=== PATIENT | female | born 1990 | race Caucasian/White ===

== ENCOUNTER 2021-06-21 18:17 | Outpatient (CLI) | payer MEDICAID | END 2021-06-21 18:18 | disposition EMS.NT | LOC: EMS 18:17 | DX: R06.09 Other forms of dyspnea (principal); R07.89 Other chest pain; R05.9 Cough, unspecified ==

== ENCOUNTER 2023-07-15 21:24 | Outpatient (CLI) | payer SELFPAY | END 2023-07-15 21:25 | disposition critical access hospital (66) | LOC: EMS 21:24 | DX: R06.03 Acute respiratory distress (principal); R00.0 Tachycardia, unspecified; J45.909 Unspecified asthma, uncomplicated | CPT/HCPCS: A0425; A0427 ==

== ENCOUNTER 2023-07-15 21:48 | Observation (INO) | payer SELFPAY ==
[2023-07-15 22:06] LABS: BASOPHILS % (AUTO) 0.4 %; EOSINOPHILS % (AUTO) 15.4 %; HCT - HEMATOCRIT 43.7 % (37.0-47.0); HGB - HEMOGLOBIN 13.5 g/dL (12.0-16.0); LYMPHOCYTES % (AUTO) 20.4 %; MEAN CORPUSCULAR HEMOGLOBIN 25.5 pg (27.0-31.0); MEAN CORPUSCULAR HGB CONC 30.9 g/dL (32.0-36.0); MEAN CORPUSCULAR VOLUME 82.5 fL (81.0-99.0); MONOCYTES % (AUTO) 3.5 %; NEUTROPHILS % (AUTO) 59.8 %; PLT - PLATELET COUNT 302 10^3/uL (130-450); RED CELL DISTRIBUTION WIDTH 15.6 % (12.0-15.0)
--- NOTE | 2023-07-15 22:06 | ED Physician Documentation ---
History of Present Illness - Stated complaint Stated Complaint: ASTHMA ATTACK - Chief complaint Chief Complaint: Resp - History obtained from History obtained from: Patient, EMS - Additonal information Additional information: 33-year-old woman with history of asthma presents with acute shortness of breath tonight during her to call EMS. On scene. Her O2 sat was 85% room air. She was given 3 DuoNebs, Solu-Medrol 125, magnesium, 0.3 of IM epi en route with improvement in breathing but is still subjectively soa. PD PAST MEDICAL HISTORY - Allergies Allergies/Adverse Reactions: Allergies Allergy/AdvReac Type Severity Reaction Status Date / Time No Known Drug Allergies Allergy Verified 07/15/23 21:57 PD ED PE NORMAL - Vitals Vital signs reviewed: Yes - General General: Alert and oriented X 3, Well developed/nourished, Other (moderate respiratory distress) - HEENT HEENT: Atraumatic, PERRL, EOMI - Neck Neck: Supple, no meningeal sign - Cardiac Cardiac: Other (tachycardic rate, regular rhythm) - Respiratory Respiratory: Other (BL inspiratory/expiratory wheezing, moderate increased wob) Results - Vitals Vitals: Vital Signs - 24 hr 07/15/23 07/15/23 07/15/23 21:54 22:05 22:15 Temperature 36.7 C Heart Rate 134 H 139 H 137 H Respiratory 24 Rate Blood Pressure 132/88 H O2 Saturation 94 07/15/23 22:25 Temperature Heart Rate 134 H Respiratory 30 H Rate Blood Pressure O2 Saturation Oxygen O2 Source BIPAP - Labs Labs: Laboratory Tests 07/15/23 07/15/23 07/15/23 21:59 21:59 21:59 WBC 25.0 H RBC 5.30 Hgb 13.5 Hct 43.7 MCV 82.5 MCH 25.5 L MCHC 30.9 L RDW 15.6 H Plt Count 302 MPV 10.0 Neut # (Auto) Not Reportable Lymph # (Auto) Not Reportable [place] # (Auto) Not Reportable Eos # (Auto) Not Reportable Baso # (Auto) Not Reportable Absolute Nucleated RBC Not Reportable Total Counted 100 Band Neuts % (Manual) 0 Reactive Lymphs % (Man) 6 Abnorm Lymph % (Manual) 0 Nucleated RBC % Not Reportable Neutrophils # (Manual) 16.0 H Lymphocytes # (Manual) 4.3 H Monocytes # (Manual) 0.5 Eosinophils # (Manual) 4.3 H Basophils # (Manual) 0.0 Differential Comment MANUAL DIFFERENTIAL Platelet Estimate NORMAL (130-450,000) Platelet Morphology NORMAL APPEARANCE RBC Morph Micro Appear NORMAL APPEARANCE VBG pH VBG pCO2 VBG pO2 VBG HCO3 VBG Total CO2 VBG O2 Saturation VBG Base Excess Sodium 134 L Potassium 3.9 Chloride 104 Carbon Dioxide 25 Anion Gap 5.0 L BUN 8 Creatinine 0.7 Estimated GFR (MDRD) 96 Glucose 248 H Lactic Acid Calcium 9.1 Total Bilirubin 0.4 AST 10 ALT 11 Alkaline Phosphatase 85 Total Protein 6.9 Albumin 4.1 Globulin 2.8 Albumin/Globulin Ratio 1.5 Lipase 15 Nasal Adenovirus (PCR) Nasal B. parapertussis DNA (PCR) Nasal Coronavir 229E PCR Nasal Coronavir HKU1 PCR Nasal Coronavir NL63 PCR Nasal Coronavir OC43 PCR Nasal Enterovir/Rhinovir PCR Nasal Influenza B PCR Nasal Influenza A PCR Nasal Parainfluen 1 PCR Nasal Parainfluen 2 PCR Nasal Parainfluen 3 PCR Nasal Parainfluen 4 PCR Nasal RSV (PCR) Nasal B.pertussis DNA PCR Nasal C.pneumoniae (PCR) John Human Metapneumo PCR Nasal M.pneumoniae (PCR) Nasal SARS-CoV-2 (PCR) Serum Ketones NEGATIVE 07/15/23 07/15/23 07/15/23 22:10 22:35 23:04 WBC RBC Hgb Hct MCV MCH MCHC RDW Plt Count MPV Neut # (Auto) Lymph # (Auto) [place] # (Auto) Eos # (Auto) Baso # (Auto) Absolute Nucleated RBC Total Counted Band Neuts % (Manual) Reactive Lymphs % (Man) Abnorm Lymph % (Manual) Nucleated RBC % Neutrophils # (Manual) Lymphocytes # (Manual) Monocytes # (Manual) Eosinophils # (Manual) Basophils # (Manual) Differential Comment Platelet Estimate Platelet Morphology RBC Morph Micro Appear VBG pH 7.269 L VBG pCO2 53.6 H VBG pO2 31.5 VBG HCO3 24.0 VBG Total CO2 25.7 VBG O2 Saturation 53.1 L VBG Base Excess -3.6 L Sodium Potassium Chloride Carbon Dioxide Anion Gap BUN Creatinine Estimated GFR (MDRD) Glucose Lactic Acid < 0.2 L Calcium Total Bilirubin AST ALT Alkaline Phosphatase Total Protein Albumin Globulin Albumin/Globulin Ratio Lipase Nasal Adenovirus (PCR) NOT DETECTED Nasal B. parapertussis DNA (PCR) NOT DETECTED Nasal Coronavir 229E PCR NOT DETECTED Nasal Coronavir HKU1 PCR NOT DETECTED Nasal Coronavir NL63 PCR NOT DETECTED Nasal Coronavir OC43 PCR NOT DETECTED Nasal Enterovir/Rhinovir PCR NOT DETECTED Nasal Influenza B PCR NOT DETECTED Nasal Influenza A PCR NOT DETECTED Nasal Parainfluen 1 PCR NOT DETECTED Nasal Parainfluen 2 PCR NOT DETECTED Nasal Parainfluen 3 PCR NOT DETECTED Nasal Parainfluen 4 PCR NOT DETECTED Nasal RSV (PCR) NOT DETECTED Nasal B.pertussis DNA PCR NOT DETECTED Nasal C.pneumoniae (PCR) NOT DETECTED John Human Metapneumo PCR NOT DETECTED Nasal M.pneumoniae (PCR) NOT DETECTED Nasal SARS-CoV-2 (PCR) NOT DETECTED Serum Ketones PD Medical Decision Making - ED course ED course: 33-year-old woman presented with severe asthma exacerbation, s/p magnesium, 3 DuoNebs, 125 Solu-Medrol, 0.3 IM epi by EMS with some improvement. She was further administered additional 3 doses of DuoNebs, started on BiPAP on arrival due to increased work of breathing, provided with a liter of IV fluids for tachycardia, and lab work and imaging was ordered. Plan to continue to monitor. Patient has respiratory acidosis on vbg. also with hyperglycemia, possibly rela jose to solumedrol administration. urinalysis, serum ketones added on. Additional Liter IVF ordered for persistent tachycardia. patient feeling subjectively better s/p 2 duonebs and bipap. WOB has improved. CXR with expanded lung barreto and increased interstitial markings. she has WBC 25. she is now able to give further history and states she has had cough productive of yellow sputum X 2 days. Blood culture sent and antibiotics ordered for possible community-acquired pneumonia. d/w Dr. Ross, telehospitalist for admission - Critical Care Time(min): 45 Time Includes: Direct patient care, Review records, Reassess patient, Document care, Coordinate care, Medical consult, Family consult for tx dec () Data interpretation: Labs, Pulse ox, ABG, CXR Departure - Departure Disposition: 66 [facility] DC/Xfer Clinical Impression: Pneumonia, Shortness of breath, Asthma exacerbation Condition: Fair Forms: PCP List
[2023-07-15 22:08] LABS: ABNORMAL LYMPHS % (MANUAL) 0 %; BAND NEUTROPHILS % (MANUAL) 0 %
[2023-07-15] MEDS: SODIUM CHLORIDE 0.9% 1,000 ML IV STA ×2 (22:08→23:01)
[2023-07-15] MEDS: LORazepam 2 MG/ML VIAL IVP STA (22:08)
[2023-07-15 22:15] LABS: VBG BASE EXCESS -3.6 mmol/L (-2 - +2); VBG PCO2 53.6 mmHg (41-51); VBG PH 7.269 (7.31-7.41); VBG PO2 31.5 mmHg (25-47); VBG TOTAL CO2 25.7 mmol/L (24-29)
[2023-07-15] MEDS: IPRATROPIUM/ALBUTEROL 3 ML NEB INH STA ×3 (22:15→23:35)
[2023-07-15 22:17] LABS: VBG OXYGEN SATURATION 53.1 % (60-80)
[2023-07-15 22:19] LABS: ALBUMIN 4.1 g/dL (3.2-5.5); ALBUMIN/GLOBULIN RATIO 1.5 (1.0-2.2); BILIRUBIN,TOTAL 0.4 mg/dL (0.2-1.0); CALCIUM 9.1 mg/dL (8.5-10.3); CREATININE 0.7 mg/dL (0.6-1.3); POTASSIUM 3.9 mmol/L (3.5-4.5); TOTAL PROTEIN 6.9 g/dL (6.4-8.9)
[2023-07-15 22:34] LABS: EOSINOPHILS # (MANUAL) 4.3 10^3/uL (0-0.7); LYMPHOCYTES # (MANUAL) 4.3 10^3/uL (1.5-3.5); LYMPHOCYTES % (MANUAL) 11 %; MONOCYTES # (MANUAL) 0.5 10^3/uL (0.0-1.0); REACTIVE LYMPHS % (MANUAL) 6 %
[2023-07-15 22:35] LABS: DIFFERENTIAL COMMENT MANUAL DIFFERENTIAL; PLATELET ESTIMATE, MANUAL NORMAL (130-450,000) (NORMAL); PLATELET MORPHOLOGY NORMAL APPEARANCE (NORMAL); RBC MORPHOLOGY (MULTIPLE) NORMAL APPEARANCE (NORMAL)
[2023-07-15] MEDS ORDERED: cefTRIAXone 2 GM VIAL ONE (22:55)
[2023-07-15] MEDS: AZITHROMYCIN INJ 500 MG in SODIUM CHLORIDE 0.9% 250 ML IV STA (23:00)
[2023-07-15] MEDS: cefTRIAXone 2 GM in SODIUM CHLORIDE 0.9% MINIBAG 100 ML IV STA (23:00)
[2023-07-15 23:32] LABS: B. PARAPERTUSSIS- RESP PCR PAN NOT DETECTED; B. PERTUSSIS- RESP PCR PANEL NOT DETECTED; C. PNEUMONIAE- RESP PCR PANEL NOT DETECTED; CORONAVIRUS 229E-RESP PCR NOT DETECTED; CORONAVIRUS HKU1-RESP PCR NOT DETECTED; CORONAVIRUS NL63-RESP PCR NOT DETECTED; CORONAVIRUS OC43-RESP PCR NOT DETECTED; HUMAN METAPNEUMOVIRUS NOT DETECTED; INFLUENZA A- RESP PCR PANEL NOT DETECTED; INFLUENZA B - RESP PCR PANEL NOT DETECTED; M. PNEUMONIAE- RESP PCR PANEL NOT DETECTED; PARAINFLUENZA VIRUS 1 NOT DETECTED; PARAINFLUENZA VIRUS 2 NOT DETECTED; PARAINFLUENZA VIRUS 3 NOT DETECTED; PARAINFLUENZA VIRUS 4 NOT DETECTED; RHINOVIRUS/ENTEROVIRUS NOT DETECTED; RSV- RESP PCR PANEL NOT DETECTED; SARS-CoV-2 -RESP PCR PANEL NOT DETECTED
[2023-07-15 23:47] LABS: BILIRUBIN,URINE NEGATIVE (NEGATIVE); GLUCOSE, URINE (UA) 250 mg/dL (NEGATIVE); KETONES,URINE (UA) NEGATIVE (NEGATIVE); LEUKOCYTE ESTERASE, URINE NEGATIVE (NEGATIVE); NITRITE,URINE NEGATIVE (NEGATIVE); OCCULT BLOOD,URINE NEGATIVE (NEGATIVE); PROTEIN,URINE TRACE mg/dL (NEGATIVE); UROBILINOGEN,URINE 0.2 (NORMAL) E.U./dL (NORMAL)
[2023-07-15] MEDS ORDERED: SODIUM CHLORIDE FLUSH 0.9% 10 ML SYRINGE IVP PRN (23:48)
[2023-07-15] MEDS ORDERED: ONDANSETRON 4 MG/2 ML VIAL IVP PRN (23:48)
[2023-07-15] MEDS ORDERED: ONDANSETRON ODT 4 MG TABLET TL PRN (23:48)
[2023-07-15 23:59] LABS: BACTERIA,URINE Rare /HPF (None Seen); CLARITY,URINE CLEAR (CLEAR); RBC,URINE 0-5 /HPF (0-5); SQUAMOUS EPITHELIAL CELL,UR FEW Squamous (<= Few); WBC,URINE 0-3 /HPF (0-5)
--- NOTE | 2023-07-16 00:24 | HISTORY & PHYSICAL EXAMINATION ---
Chief Complaint - Chief Complaint Chief Complaint: shortness of breath History of Present Illness - Admitted From Admitted From:: ED - History Obtained From History obtained from: Patient, Family member, ED physician Exam Limitations: acuity of presentation - History of Present Illness HPI Comment/Other: Mrs. Ling presented to the ED for further evaluation of shortness of breath,cough and sputum production. Patient was on Bipap during my evalaution, family at bedside assisted with history. Patient has a history of asthma. Two weeks prior to this presentation , she required treatment for a mild exacerbation. Since that time she has developed a worsening cough that became productive of yellowish sputum. She has not had any recent sick contacts. She denies fevers or chills. At home she utilized her inhalers and nebulizer treatments without relief. Upon arrival by EMS, she was noted to be saturating in the mid 80s on RA and in severe respiratory distress. Patient received duonebs, solumedrol, IV magnesium, and epinephrine in route to the ED. Patient saturations had improved but she still demonstrated increased work of breathing and therefore she was placed on bipap. During my evaluation, patient was sitting up in bed, with bipap mask on. She had increased respirations, mild chest retractions. she was not tripoding. severe conversational dyspnea noted. History - Past Medical History Respiratory: reports: Asthma Neuro: reports: None Endocrine/Autoimmune: reports: None GI: reports: None DIRECTOR AMBULATORY: reports: None : reports: None HEENT: reports: None Psych: reports: None Musculoskeletal: reports: None Derm: reports: None Meds/Allgy - Allergies Allergies/Adverse Reactions: Allergies Allergy/AdvReac Type Severity Reaction Status Date / Time No Known Drug Allergies Allergy Verified 07/15/23 21:57 Review of Systems - Constitutional Constitutional: denies: Fever - Ears, Nose & Throat Ears, Nose & Throat: reports: Nasal congestion - Cardiovascular Cariovascular: reports: Exertional dyspnea. denies: Chest pain - Respiratory Respiratory: reports: Cough, Sputum production, Wheezing, SOB at rest, SOB with exertion - Gastrointestinal Gastrointestinal: denies: Abdominal pain, Diarrhea, Change in bowel habits - Genitourinary Genitourinary: denies: Dysuria, Hematuria - Musculoskeletal Musculoskeletal: denies: Muscle pain, Back pain - Integumentary Integumentary: denies: Rash, Pruritis, Dryness Exam - Vital Signs Reviewed Vital Signs: Yes Vital Signs: Vital Signs x48h Temp Pulse Resp BP Pulse Ox 07/15/23 23:45 138 H 23 132/94 H 99 07/15/23 23:35 140 H 24 07/15/23 22:30 135 H 28 H 128/71 100 07/15/23 22:25 134 H 30 H 07/15/23 22:15 137 H 24 07/15/23 22:05 139 H 07/15/23 21:54 36.7 C 134 H 132/88 H 94 - Physical Exam General Appearance: positive: Moderate distress Eyes Bilateral: positive: Normal inspection, PERRL Neck: positive: Nml inspection, Thyroid nml, No JVD, Trachea midline Respiratory: positive: Wheezes, Other (Tachypnea, acute respiratory distress,accessory muscle recruitment) Cardiovascular: positive: Regular rate & rhythm, No murmur, No gallop Skin: positive: Color nml, No rash, Warm, Dry Extremities: positive: Non-tender, Full ROM, Nml appearance Neurologic/Psychiatric: positive: Oriented x3, Mood/affect nml Conclusion/Plan - Problem List (1) Asthma exacerbation Conclusion/Plan: -admit to ICU -close monitor with serial vitals, continous telemtry and pulse oximetry -scheduled HERI/ipratropium nebulizer q4hr, pre and post PFTs to evalaute for treatment response -schedule solumedrol 40mg BID -continue bipap, titrate as tolerated to room air -empiric antibiotics initiated, reviewed chest xray independently: no opacity consistent with pneumonia. Follow up imaging in the morning Qualifiers: Asthma severity: severe Qualified Code(s): J45.901 - Unspecified asthma with (acute) exacerbation (2) Acute respiratory failure with hypoxia and hypercapnia Conclusion/Plan: -secondary to acute asthma exacerbation -continuous pulse oximetry and serial pulmonary function test to monitor for positive clinical response -titrate oxygen as tolerated (3) Hyperglycemia, unspecified Conclusion/Plan: -etiology uncertain, no history of diabetes -acute stress response likely -HbA1C obtained in the ED pending -continue to monitor with POC glucose checks. - Lab Results Fish Bones: 07/15/23 21:59 07/15/23 21:59
--- NOTE | 2023-07-16 00:33 | XRAY Report ---
PROCEDURE: Chest 1V INDICATIONS: soa TECHNIQUE: One view of the chest was acquired. COMPARISON: None FINDINGS: Surgical changes and devices: None. Lungs and pleura: No pleural effusions or pneumothorax. Lungs are clear. Mediastinum: Mediastinal contours appear normal. Heart size is normal. Bones and chest wall: No suspicious bony lesions. Overlying soft tissues appear unremarkable. Eduard ateral old rib fractures. IMPRESSION: No acute cardiopulmonary process. The above findings are concordant with preliminary report. Reviewed by: Jessie Humphreys MD on 07/16/2023 12:32 AM PDT Approved by: Jessie Humphreys MD on 07/16/2023 12:32 AM PDT Station ID: [id number]
[2023-07-16] MEDS: SODIUM CHLORIDE FLUSH 0.9% 10 ML SYRINGE IVP SCH (01:00)
[2023-07-16 04:53] LABS: BASOPHILS % (AUTO) 0.2 %; EOSINOPHILS % (AUTO) 0.1 %; HCT - HEMATOCRIT 40.9 % (37.0-47.0); HGB - HEMOGLOBIN 12.5 g/dL (12.0-16.0); LYMPHOCYTES # (AUTO) 1.2 10^3/uL (1.5-3.5); LYMPHOCYTES % (AUTO) 7.4 %; MEAN CORPUSCULAR HEMOGLOBIN 25.2 pg (27.0-31.0); MEAN CORPUSCULAR HGB CONC 30.6 g/dL (32.0-36.0); MEAN CORPUSCULAR VOLUME 82.3 fL (81.0-99.0); MEAN PLATELET VOLUME 10.1 fL (7.9-10.8); MONOCYTES # (AUTO) 0.1 10^3/uL (0.0-1.0); MONOCYTES % (AUTO) 0.4 %; NEUTROPHILS # (AUTO) 14.8 10^3/uL (1.5-6.6); NEUTROPHILS % (AUTO) 91.4 %; PLT - PLATELET COUNT 240 10^3/uL (130-450); RED BLOOD COUNT 4.97 10^6/uL (4.20-5.40); RED CELL DISTRIBUTION WIDTH 15.6 % (12.0-15.0); WHITE BLOOD COUNT 16.1 x10^3/uL (4.8-10.8)
[2023-07-16 05:03] LABS: CALCIUM, IONIZED 1.1 mmol/L (1.15-1.33); VBG PH 7.37 (7.31-7.41)
[2023-07-16 05:19] LABS: MAGNESIUM 2.1 mg/dL (1.7-2.3); PHOSPHORUS 2.3 mg/dL (2.5-5.0)
[2023-07-16 05:21] LABS: CALCIUM 8.7 mg/dL (8.5-10.3); CREATININE 0.6 mg/dL (0.6-1.3)
[2023-07-16] MEDS: CALCIUM CARBONATE CHEW 500 MG TABLET PO SCH (06:20)
[2023-07-16] MEDS: IPRATROPIUM 0.2 MG/ML NEB INH SCH (06:40)
[2023-07-16] MEDS: ALBUTEROL NEB 2.5 MG/3 ML INH SCH (06:40)
[2023-07-16] MEDS ORDERED: ALBUTEROL NEB 2.5 MG/3 ML INH PRN (06:48)
[2023-07-16] MEDS: IPRATROPIUM/ALBUTEROL 3 ML NEB INH SCH (08:05)
[2023-07-16] MEDS: methylPREDNISolone SUCCINATE 40 MG/ML VIAL IVP SCH (08:49)
--- NOTE | 2023-07-16 08:50 | XRAY Report ---
PROCEDURE: Chest 1V INDICATIONS: respiratory failure TECHNIQUE: One view of the chest was acquired. COMPARISON: 07/15/2023. FINDINGS: Surgical changes and devices: None. Lungs and pleura: No pleural effusions or pneumothorax. Subtle opacities are noted at bilateral lung bases not definitely seen on previous study. Mediastinum: Mediastinal contours appear normal. Heart size is normal. Bones and chest wall: No suspicious bony lesions. Overlying soft tissues appear unremarkable. IMPRESSION: Finding is concerning for small developing bibasilar infiltrate versus atelectasis. Continued radiogr aphic follow-up is recommended. No pleural effusion or pneumothorax. Reviewed by: Narendra Crow MD on 07/16/2023 8:48 AM PDT Approved by: Narendra Crow MD on 07/16/2023 8:48 AM PDT Station ID: [id number]
[2023-07-16] MEDS ORDERED: cefTRIAXone 1 GM VIAL IVP SCH (09:00)
--- NOTE | 2023-07-16 11:06 | PHARMACY PROGRESS NOTE ---
- Best Possible Medication History Admit Date and Time: 07/15/23 1757 Processed by: Pharmacy Medications reviewed in ED?: No Medication History completed: Yes Patient Interview: Completed Secondary Source(s): Insurance records Obey states she was on Fasenra until January of 2023 when she lost insurance coverage for the medication, so she has not received an injection since then. As the person ultimately responsible for medication therapy, providers are able to order a medication from an existing home medication list in [facility] via the "Reconcile Routine" prior to Confirmation of that medication by windows support engineer. Such practice is discouraged except when the physician, in their clinical judgment, deems that a medical need exists for a medication without regard to previous use.
[2023-07-16] MEDS: NEUTRA-PHOS 250 MG TABLET PO SCH (13:04)
[2023-07-16] MEDS: ACETAMINOPHEN 325 MG TABLET PO PRN (13:04)
[2023-07-16] MEDS: cefTRIAXone 1 GM in SODIUM CHLORIDE 0.9% MINIBAG 100 ML IV SCH (21:32)
--- NOTE | 2023-07-16 21:55 | PROVIDER PROGRESS NOTE ---
Assessment/Plan - Problem List (1) Asthma exacerbation Qualifiers: Asthma severity: severe Qualified Code(s): J45.901 - Unspecified asthma with (acute) exacerbation Assessment/Plan: Respiratory status has improved and patient is transferred to the medical floor. Continue bronchodilators. Continue IV corticosteroids with methylprednisolone 40 mg twice daily. Patient was taking benralizumab and reports her asthma was very well-controlled. She currently cannot afford this medication because she has no insurance. She reports she will have insurance in the next several months. Upon discharge. Recommend 15-day course of tapering steroids. Patient should be discharged home with an inhaled corticosteroid and long-acting beta agonist. Qualifiers: Asthma severity: severe Qualified Code(s): J45.901 - Unspecified asthma with (acute) exacerbation (2) Acute respiratory failure with hypoxia and hypercapnia Conclusion/Plan: Secondary to asthma exacerbation. Respiratory status has improved. Continue to monitor. (3) Hyperglycemia, unspecified Conclusion/Plan: Continue to monitor [id number] glucose. - Current Meds Current Meds: Current Medications Generic Name Dose Route Start Last Admin Trade Name Freq PRN Reason Stop Dose Admin Acetaminophen 650 mg 07/15/23 23:48 07/16/23 19:49 Acetaminophen 325 Mg Tablet PO 650 mg Q4HR PRN Administration Pain 1 to 4, or Fever Albuterol/Ipratropium 3 ml 07/16/23 07:00 07/16/23 19:00 Ipratropium/Albuterol 3 Ml Neb INH 3 ml RTQID SERGEI Administration Ceftriaxone Sodium 1 gm/ 100 mls @ 200 mls/hr 07/16/23 22:00 07/16/23 21:32 Sodium Chloride IV 07/19/23 22:29 200 mls/hr Q24H SERGEI Administration Methylprednisolone 40 mg 07/16/23 09:00 07/16/23 21:32 Methylprednisolone Succinate 40 Mg/Ml Vial IVP 40 mg BID SERGEI Administration Sodium Chloride 10 ml 07/16/23 01:00 07/16/23 18:48 Sodium Chloride Flush 0.9% 10 Ml Syringe IVP 10 ml 0100,0900,1700 SERGEI Administration - Lab Result Fish Bone Diagrams: 07/16/23 04:38 07/16/23 04:38 Subjective - Subjective Patient Reports: Other (Alert. No longer requiring bilevel therapy. She is speaking in full sentences. She has no other complaints at this time.) Objective Vital Signs: Vital Signs - 24 hr 07/15/23 07/15/23 07/15/23 21:54 22:05 22:15 Temperature 36.7 C Heart Rate 134 H 139 H 137 H Heart Rate [ Monitoring electrodes] Respiratory 24 Rate Blood Pressure 132/88 H Blood Pressure [Left Brachial artery] O2 Saturation 94 If not protocol : Oxygen Flow, liters/minute 07/15/23 07/15/23 07/15/23 22:25 22:30 23:35 Temperature Heart Rate 134 H 135 H 140 H Heart Rate [ Monitoring electrodes] Respiratory 30 H 28 H 24 Rate Blood Pressure 128/71 Blood Pressure [Left Brachial artery] O2 Saturation 100 If not protocol : Oxygen Flow, liters/minute 07/15/23 07/16/23 07/16/23 23:45 00:04 00:25 Temperature Heart Rate 138 H 138 H 132 H Heart Rate [ Monitoring electrodes] Respiratory 23 Rate Blood Pressure 132/94 H Blood Pressure [Left Brachial artery] O2 Saturation 99 If not protocol : Oxygen Flow, liters/minute 07/16/23 07/16/23 07/16/23 01:00 01:30 03:00 Temperature 36.7 C Heart Rate Heart Rate [ 131 H 121 H 115 H Monitoring electrodes] Respiratory 22 19 Rate Blood Pressure Blood Pressure 110/89 H 112/76 [Left Brachial artery] O2 Saturation 96 95 95 If not protocol 4 2 : Oxygen Flow, liters/minute 07/16/23 07/16/23 07/16/23 04:00 05:00 06:00 Temperature 36.4 C L Heart Rate Heart Rate [ 114 H 112 H Monitoring electrodes] Respiratory 22 22 20 Rate Blood Pressure Blood Pressure 132/87 H 114/74 116/78 [Left Brachial artery] O2 Saturation 95 96 95 If not protocol 2 2 2 : Oxygen Flow, liters/minute 07/16/23 07/16/23 07/16/23 06:42 06:43 07:00 Temperature Heart Rate 114 H Heart Rate [ 113 H Monitoring electrodes] Respiratory 18 20 Rate Blood Pressure Blood Pressure 125/79 [Left Brachial artery] O2 Saturation 96 If not protocol 2 2 2 : Oxygen Flow, liters/minute 07/16/23 07/16/23 07/16/23 08:00 08:01 09:00 Temperature 36.7 C Heart Rate Heart Rate [ 109 H 113 H Monitoring electrodes] Respiratory 21 27 H Rate Blood Pressure Blood Pressure 127/79 130/75 [Left Brachial artery] O2 Saturation 93 92 If not protocol 1 1 : Oxygen Flow, liters/minute 07/16/23 07/16/23 07/16/23 10:08 11:00 11:08 Temperature Heart Rate 112 H Heart Rate [ 109 H 110 H Monitoring electrodes] Respiratory 20 13 16 Rate Blood Pressure Blood Pressure 155/87 H 148/96 H [Left Brachial artery] O2 Saturation 94 95 If not protocol : Oxygen Flow, liters/minute 07/16/23 07/16/23 07/16/23 12:02 14:30 15:42 Temperature 36.9 C Heart Rate 100 Heart Rate [ 115 H Monitoring electrodes] Respiratory 12 20 Rate Blood Pressure Blood Pressure 149/89 H [Left Brachial artery] O2 Saturation 93 If not protocol 1 : Oxygen Flow, liters/minute 07/16/23 07/16/23 07/16/23 16:02 19:00 19:41 Temperature 37.0 C 37.1 C Heart Rate 114 H Heart Rate [ 119 H 124 H Monitoring electrodes] Respiratory 18 18 18 Rate Blood Pressure Blood Pressure 137/86 H 122/83 H [Left Brachial artery] O2 Saturation 91 L 92 If not protocol : Oxygen Flow, liters/minute Oxygen O2 Source Room air I&O (Last 24 Hrs): Intake and Output Totals x24h 07/14/23 07/15/23 07/16/23 23:59 23:59 23:59 Intake Total 1100 1180 Balance 1100 1180 General: Alert, Oriented x3, Cooperative, No acute distress HEENT: Atraumatic, PERRLA Neck: Supple, No JVD, No thyromegaly Neuro: Alert, Non Focal Cardiovascular: Other (Positive S1-S2 no extra heart sounds.) Respiratory: Other (Fair air exchange in all lung barreto. Positive expiratory wheezing. No crackles.) Abdomen: Other (Soft nontender nondistended positive bowel sounds) Extremities: No cyanosis, No edema Skin: No rashes - Results Results: Laboratory Results WBC 16.1 x10^3/uL (4.8-10.8) H 07/16/23 04:38 RBC 4.97 10^6/uL (4.20-5.40) 07/16/23 04:38 Hgb 12.5 g/dL (12.0-16.0) 07/16/23 04:38 Hct 40.9 % (37.0-47.0) 07/16/23 04:38 MCV 82.3 fL (81.0-99.0) 07/16/23 04:38 MCH 25.2 pg (27.0-31.0) L 07/16/23 04:38 MCHC 30.6 g/dL (32.0-36.0) L 07/16/23 04:38 RDW 15.6 % (12.0-15.0) H 07/16/23 04:38 Plt Count 240 10^3/uL (130-450) 07/16/23 04:38 MPV 10.1 fL (7.9-10.8) 07/16/23 04:38 Neut # (Auto) 14.8 10^3/uL (1.5-6.6) H 07/16/23 04:38 Lymph # (Auto) 1.2 10^3/uL (1.5-3.5) L 07/16/23 04:38 [place] # (Auto) 0.1 10^3/uL (0.0-1.0) 07/16/23 04:38 Eos # (Auto) 0.0 10^3/uL (0.0-0.7) 07/16/23 04:38 Baso # (Auto) 0.0 10^3/uL (0.0-0.1) 07/16/23 04:38 Absolute Nucleated RBC 0.00 x10^3/uL 07/16/23 04:38 Total Counted 100 07/15/23 21:59 Band Neuts % (Manual) 0 % (0-10) 07/15/23 21:59 Reactive Lymphs % (Man) 6 % 07/15/23 21:59 Abnorm Lymph % (Manual) 0 % 07/15/23 21:59 Nucleated RBC % 0.0 /100WBC 07/16/23 04:38 Neutrophils # (Manual) 16.0 10^3/uL (1.5-6.6) H 07/15/23 21:59 Lymphocytes # (Manual) 4.3 10^3/uL (1.5-3.5) H 07/15/23 21:59 Monocytes # (Manual) 0.5 10^3/uL (0.0-1.0) 07/15/23 21:59 Eosinophils # (Manual) 4.3 10^3/uL (0-0.7) H 07/15/23 21:59 Basophils # (Manual) 0.0 10^3/uL (0-0.1) 07/15/23 21:59 Differential Comment MANUAL DIFFERENTIAL 07/15/23 21:59 Platelet Estimate NORMAL (130-450,000) (NORMAL) 07/15/23 21:59 Platelet Morphology NORMAL APPEARANCE (NORMAL) 07/15/23 21:59 RBC Morph Micro Appear NORMAL APPEARANCE (NORMAL) 07/15/23 21:59 VBG pH 7.370 (7.31-7.41) 07/16/23 04:38 VBG pCO2 53.6 mmHg (41-51) H 07/15/23 22:10 VBG pO2 31.5 mmHg (25-47) 07/15/23 22:10 VBG HCO3 24.0 mmol/L (23-28) 07/15/23 22:10 VBG Total CO2 25.7 mmol/L (24-29) 07/15/23 22:10 VBG O2 Saturation 53.1 % (60-80) L 07/15/23 22:10 VBG Base Excess -3.6 mmol/L (-2 - +2) L 07/15/23 22:10 Ionized Calcium 1.10 mmol/L (1.15-1.33) L 07/16/23 04:38 Sodium 138 mmol/L (135-145) 07/16/23 04:38 Potassium 4.0 mmol/L (3.5-4.5) 07/16/23 04:38 Chloride 109 mmol/L (101-111) 07/16/23 04:38 Carbon Dioxide 21 mmol/L (21-32) 07/16/23 04:38 Anion Gap 8.0 (6-13) 07/16/23 04:38 BUN 7 mg/dL (6-20) 07/16/23 04:38 Creatinine 0.6 mg/dL (0.6-1.3) 07/16/23 04:38 Estimated GFR (MDRD) 114 (>89) 07/16/23 04:38 Glucose 157 mg/dL (74-104) H 07/16/23 04:38 POC Whole Bld Glucose 146 mg/dL (70 - 100) H 07/16/23 07:33 Lactic Acid < 0.2 mmol/L (0.5-2.2) L 07/15/23 23:04 Calcium 8.7 mg/dL (8.5-10.3) 07/16/23 04:38 Phosphorus 2.3 mg/dL (2.5-5.0) L 07/16/23 04:38 Magnesium 2.1 mg/dL (1.7-2.3) 07/16/23 04:38 Total Bilirubin 0.4 mg/dL (0.2-1.0) 07/15/23 21:59 AST 10 IU/L (10-42) 07/15/23 21:59 ALT 11 IU/L (10-60) 07/15/23 21:59 Alkaline Phosphatase 85 IU/L (42-121) 07/15/23 21:59 Total Protein 6.9 g/dL (6.4-8.9) 07/15/23 21:59 Albumin 4.1 g/dL (3.2-5.5) 07/15/23 21:59 Globulin 2.8 g/dL (2.1-4.2) 07/15/23 21:59 Albumin/Globulin Ratio 1.5 (1.0-2.2) 07/15/23 21:59 Lipase 15 U/L (11-82) 07/15/23 21:59 Urine Color YELLOW 07/15/23 23:30 Urine Clarity CLEAR (CLEAR) 07/15/23 23:30 Urine pH 6.0 PH (5.0-7.5) 07/15/23 23:30 Ur Specific Levan >=1.030 (1.002-1.030) H 07/15/23 23:30 Urine Protein TRACE mg/dL (NEGATIVE) 07/15/23 23:30 Urine Glucose (UA) 250 mg/dL (NEGATIVE) H 07/15/23 23:30 Urine Ketones NEGATIVE mg/dL (NEGATIVE) 07/15/23 23:30 Urine Occult Blood NEGATIVE (NEGATIVE) 07/15/23 23:30 Urine Nitrite NEGATIVE (NEGATIVE) 07/15/23 23:30 Urine Bilirubin NEGATIVE (NEGATIVE) 07/15/23 23:30 Urine Urobilinogen 0.2 (NORMAL) E.U./dL (NORMAL) 07/15/23 23:30 Ur Leukocyte Esterase NEGATIVE (NEGATIVE) 07/15/23 23:30 Urine RBC 0-5 /HPF (0-5) 07/15/23 23:30 Urine WBC 0-3 /HPF (0-5) 07/15/23 23:30 Ur Squamous Epith Cells FEW Squamous (<= Few) 07/15/23 23:30 Urine Bacteria Rare /HPF (None Seen) 07/15/23 23:30 Urine Culture Comments NOT INDICATED 07/15/23 23:30 Nasal Adenovirus (PCR) NOT DETECTED 07/15/23 22:35 Nasal B. parapertussis DNA (PCR) NOT DETECTED 07/15/23 22:35 Nasal Coronavir 229E PCR NOT DETECTED 07/15/23 22:35 Nasal Coronavir HKU1 PCR NOT DETECTED 07/15/23 22:35 Nasal Coronavir NL63 PCR NOT DETECTED 07/15/23 22:35 Nasal Coronavir OC43 PCR NOT DETECTED 07/15/23 22:35 Nasal Enterovir/Rhinovir PCR NOT DETECTED 07/15/23 22:35 Nasal Influenza B PCR NOT DETECTED 07/15/23 22:35 Nasal Influenza A PCR NOT DETECTED 07/15/23 22:35 Nasal Parainfluen 1 PCR NOT DETECTED 07/15/23 22:35 Nasal Parainfluen 2 PCR NOT DETECTED 07/15/23 22:35 Nasal Parainfluen 3 PCR NOT DETECTED 07/15/23 22:35 Nasal Parainfluen 4 PCR NOT DETECTED 07/15/23 22:35 Nasal RSV (PCR) NOT DETECTED 07/15/23 22:35 Nasal Screen MRSA (PCR) NEGATIVE (NEGATIVE) 07/16/23 01:00 Nasal B.pertussis DNA PCR NOT DETECTED 07/15/23 22:35 Nasal C.pneumoniae (PCR) NOT DETECTED 07/15/23 22:35 John Human Metapneumo PCR NOT DETECTED 07/15/23 22:35 Nasal M.pneumoniae (PCR) NOT DETECTED 07/15/23 22:35 Nasal SARS-CoV-2 (PCR) NOT DETECTED 07/15/23 22:35 Serum Ketones NEGATIVE (NEGATIVE) 07/15/23 21:59
[2023-07-17 05:48] LABS: BASOPHILS % (AUTO) 0.1 %; HCT - HEMATOCRIT 41.1 % (37.0-47.0); HGB - HEMOGLOBIN 12.8 g/dL (12.0-16.0); LYMPHOCYTES # (AUTO) 2.4 10^3/uL (1.5-3.5); LYMPHOCYTES % (AUTO) 11.6 %; MEAN CORPUSCULAR HEMOGLOBIN 25.9 pg (27.0-31.0); MEAN CORPUSCULAR HGB CONC 31.1 g/dL (32.0-36.0); MEAN CORPUSCULAR VOLUME 83.2 fL (81.0-99.0); MEAN PLATELET VOLUME 10.4 fL (7.9-10.8); MONOCYTES # (AUTO) 0.6 10^3/uL (0.0-1.0); NEUTROPHILS # (AUTO) 17.2 10^3/uL (1.5-6.6); NEUTROPHILS % (AUTO) 84.7 %; PLT - PLATELET COUNT 262 10^3/uL (130-450); RED BLOOD COUNT 4.94 10^6/uL (4.20-5.40); WHITE BLOOD COUNT 20.3 x10^3/uL (4.8-10.8)
[2023-07-17 06:07] LABS: CALCIUM 9.7 mg/dL (8.5-10.3); CREATININE 0.6 mg/dL (0.6-1.3); MAGNESIUM 2.1 mg/dL (1.7-2.3); POTASSIUM 4.4 mmol/L (3.5-4.5)
[2023-07-17 06:36] LABS: DIFFERENTIAL COMMENT 2; PLATELET ESTIMATE, MANUAL NORMAL (130-450,000) (NORMAL); PLATELET MORPHOLOGY NORMAL APPEARANCE (NORMAL); RBC MORPHOLOGY (MULTIPLE) NORMAL APPEARANCE (NORMAL)
--- NOTE | 2023-07-17 16:30 | Discharge Plan ---
Discharge Plan Problem Reviewed?: Yes Disposition: Home, Self Care Condition: Stable Prescriptions: Fluticasone/Salmeterol [Advair 250-50 Diskus] 1 each IH BID #1 each Ipratropium/Albuterol [Duoneb] 3 ml INH Q4H PRN #120 ml PRN Reason: Shortness Of Air/Wheezing levoFLOXacin 750 MG/150 ML [Levaquin 750 mg/150 ml] 750 mg IV Q24H 5 Days #5 ml predniSONE [Prednisone 21-TAB dose pack] 10 mg PO UD #1 each Diet: Diabetic Activity Restrictions: Activity as Tolerated Shower Restrictions: No Driving Restrictions: No Instruction Topics: Asthma Health Concerns: History of Present Illness per Dr. Luz Marina Baez history and physical: Mrs. Ling presented to the ED for further evaluation of shortness of breath,cough and sputum production. Patient was on Bipap during my evalaution, family at bedside assisted with history. Patient has a history of asthma. Two weeks prior to this presentation , she required treatment for a mild exacerbation. Since that time she has developed a worsening cough that became productive of yellowish sputum. She has not had any recent sick contacts. She denies fevers or chills. At home she utilized her inhalers and nebulizer treatments without relief. Upon arrival by EMS, she was noted to be saturating in the mid 80s on RA and in severe respiratory distress. Patient received duone bs, solumedrol, IV magnesium, and epinephrine in route to the ED. Patient saturations had improved but she still demonstrated increased work of breathing and therefore she was placed on bipap. During my evaluation, patient was sitting up in bed, with bipap mask on. She had increased respirations, mild chest retractions. she was not tripoding. severe conversational dyspnea noted. Hospital Course: Obey Ling was initially admitted to the intensive care unit and treated with bilateral positive airway pressure therapy for respiratory support. Her breathing improved quickly and she was weaned off of bilevel positive airway pressure therapy. Treatment was initiated with IV corticosteroids and bronchodilators. Empiric antibiotics were initiated for pneumonia. The patient was able to be weaned off of bilevel positive airway pressure therapy and her breathing continues to improve. Patient was comfortable with discharge to home. She will receive a prolonged tapering course of steroids. She is requested I renew her DuoNeb. Treatment was initiated with Advair Recommend patient follow-up with a audio production manager or lamination inspector upon discharge. Recommend trying to make an appointment with audio production manager in [facility] (Dr. Emerita Jeronimo ) Recommend patient give away or remove her chickens from her home. Plan of Treatment: 1. Take all medications as directed. 2. Avoid contact with birds such as chickens. 3. Please schedule a follow-up with an audio production manager or lamination inspector. 4. Please establish care with a primary care provider Care Goals: Goal of care is to improve asthma symptoms and improve quality of life. Assessment: (1) Asthma exacerbation Qualifiers: Asthma severity: severe Qualified Code(s): J45.901 - Unspecified asthma with (acute) exacerbation Assessment/Plan: Respiratory status has improved and patient is ready for discharge. Continue bronchodilators. Patient has been given a 21-day tapering course of prednisone. Patient was taking benralizumab and reports her asthma was very well-controlled. She currently cannot afford this medication because she has no insurance. She reports she will have insurance in the next several months. Upon discharge. Qualifiers: Asthma severity: severe Qualified Code(s): J45.901 - Unspecified asthma with (acute) exacerbation (2) Acute respiratory failure with hypoxia and hypercapnia Conclusion/Plan: Secondary to asthma exacerbation. Respiratory status has improved. Continue to monitor. (3) Hyperglycemia, unspecified Conclusion/Plan: Continue to monitor [id number] glucose. No Smoking: If you smoke, Please STOP! Call for help.
--- NOTE | 2023-07-17 16:30 | DISCHARGE SUMMARY ---
Discharge Summary Admit Date: 07/16/23 Discharge Date: 07/17/23 Discharging Provider: Jose Blanco MD Condition at Discharge: Stable Discharge Disposition: 01 Home, Self Care Discharge Facility Name: [facility] - DIAGNOSES Admission Diagnoses: (1) Asthma exacerbation (2) Acute respiratory failure with hypoxia and hypercapnia (3) Hyperglycemia, unspecified Discharge Diagnoses with Status of Each Condition: (1) Asthma exacerbation (2) Acute respiratory failure with hypoxia and hypercapnia (3) Hyperglycemia, unspecified - HPI History of Present Illness: History of Present Illness per Dr. Luz Marina Baez history and physical: Mrs. Ling presented to the ED for further evaluation of shortness of breath,cough and sputum production. Patient was on Bipap during my evalaution, family at bedside assisted with history. Patient has a history of asthma. Two weeks prior to this presentation , she required treatment for a mild e xacerbation. Since that time she has developed a worsening cough that became productive of yellowish sputum. She has not had any recent sick contacts. She denies fevers or chills. At home she utilized her inhalers and nebulizer treatments without relief. Upon arrival by EMS, she was noted to be saturating in the mid 80s on RA and in severe respiratory distress. Patient received duonebs, solumedrol, IV magnesium, and epinephrine in route to the ED. Patient saturations had improved but she still demonstrated increased work of breathing and therefore she was placed on bipap. During my evaluation, patient was sitting up in bed, with bipap mask on. She had increased respirations, mild chest retractions. she was not tripoding. severe conversational dyspnea noted. - HOSPITAL COURSE Hospital Course: Hospital Course: Obey Ling was initially admitted to the intensive care unit and treated with bilateral positive airway pressure therapy for respiratory support. Her breathing improved quickly and she was weaned off of bilevel positive airway pressure therapy. Treatment was initiated with IV corticosteroids and bronchodilators. Empiric antibiotics were initiated for pneumonia. The patient was able to be weaned off of bilevel positive airway pressure therapy and her breathing continues to improve. Patient was comfortable with di scharge to home. She will receive a prolonged tapering course of steroids. She is requested I renew her DuoNeb. Treatment was initiated with Advair Recommend patient follow-up with a general road supervisor or mail list librarian upon discharge. Recommend trying to make an appointment with general road supervisor in [facility] (Dr. Emerita Jeronimo ) Recommend patient give away or remove her chickens from her home. - ALLERGIES Allergies/Adverse Reactions: Allergies Allergy/AdvReac Type Severity Reaction Status Date / Time No Known Drug Allergies Allergy Verified 07/15/23 21:57 - MEDICATIONS Home Medications: Ambulatory Orders Medication Instructions Recorded Confirmed Albuterol Sulf [Ventolin Hfa 1 puffs INH Q4H PRN 07/16/23 07/16/23 Inhaler] Ascorbic Acid [Vitamin C] 1,000 mg PO DAILY 07/16/23 07/16/23 Citalopram Hydrobromide [Celexa] 20 mg PO QPM 07/16/23 07/16/23 Fexofenadine [Hazel] 60 mg PO DAILY 07/16/23 07/16/23 Fluticasone [Flonase] 2 sprays ARVIND DAILY 07/16/23 07/16/23 Losartan Potassium 100 mg PO DAILY 07/16/23 07/16/23 Montelukast [Singulair] 10 mg PO QPM 07/16/23 07/16/23 Multivitamin [Theragran] 1 tab PO DAILY 07/16/23 07/16/23 Fluticasone/Salmeterol [Advair 1 each IH BID #1 each 07/17/23 250-50 Diskus] Ipratropium/Albuterol [Duoneb] 3 ml INH Q4H PRN #120 ml 07/17/23 levoFLOXacin 750 MG/150 ML 750 mg IV Q24H 5 Days #5 ml 07/17/23 [Levaquin 750 mg/150 ml] predniSONE [Prednisone 21-TAB dose 10 mg PO UD #1 each 07/17/23 pack] - PHYSICAL EXAM AT DISCHARGE General Appearance: positive: No acute distress, Alert Eyes Bilateral: positive: EOMI, Conjunctivae nml, No scleral icterus Neck: positive: No JVD, Trachea midline Respiratory: positive: Other (Fair air exchange in all lung barreto no wheezing no crackles. ase) Cardiovascular: positive: Other (Positive S1-S2 no extra heart sounds.) Abdomen: positive: Other (Soft nontender nondistended positive bowel) Skin: positive: No rash Neurologic/Psychiatric: positive: Motor nml - LABS Result Diagrams: 07/17/23 05:26 07/17/23 05:26 - FOLLOW UP Follow Up: Please obtain a primary care provider and consider seeking a consult with a mail list librarian or an general road supervisor. - TIME SPENT Time Spent in Discharge (Minutes): 25
[2023-07-17 17:50] VITALS: BP 150/95; O2SAT 93
[2023-07-17] MEDS ORDERED: IPRATROPIUM/ALBUTEROL 3 ML NEB INH SCH (19:00)
== END 2023-07-17 18:00 | disposition home or self-care (01) ==
LOC: EDUNIT# → ED 21:48 → ICU 23:48 → MS2 07-16 14:07
PROVIDERS: ADMIT Hospitalist; ATTEND Internal Medicine
DX: J45.901 Unspecified asthma with (acute) exacerbation (principal); J96.01 Acute respiratory failure with hypoxia; J96.02 Acute respiratory failure with hypercapnia; E87.29 Other acidosis; R00.0 Tachycardia, unspecified; R73.9 Hyperglycemia, unspecified; Z20.822 Contact with and (suspected) exposure to COVID-19
CPT/HCPCS: 36415; 71045; 80048; 80053; 81001; 82009; 82330; 82803; 83605; 83690; 83735; 84100; 85025; 87040; 87150; 87633; 94150; 94640; 94660; 94664; 96365; 96366; 96375; 96376; 99291; A9270; G0378; J2060; 36600; 87086